=== PATIENT | male | born 1965 | race Caucasian/White ===

== ENCOUNTER → 2020-02-19 | Outpatient (CLI) | payer OTHER ==
--- NOTE | 2020-02-20 02:52 | MR ---
EXAMINATION TYPE: MR shoulder RT wo con DATE OF EXAM: 02/19/2020 COMPARISON: None HISTORY: Rt shoulder chronic pain with restricted range of motion x12 plus years, no prev Multiplanar multiecho imaging of the right shoulder was performed with no contrast. Subscapularis tendon is intact. Biceps tendon is intact. The glenoid amanda appear normal. The suprasp inatus tendon appears intact. There is small amount of fluid in the subdeltoid bursa. The AC joint is intact. There is no subacromial impingement. IMPRESSION: No evidence of rotator cuff tear. There is minimal subdeltoid fluid consistent with bursitis.
== END | disposition home or self-care (01) ==
LOC: RADMRIMAIN 19:57
DX: M25.811 Other specified joint disorders, right shoulder (principal)